=== PATIENT | male | born 1950 | race Caucasian/White ===

== ENCOUNTER → 2024-05-24 06:20 | Day surgery (SDC) | payer MEDICARE, SELFPAY | LOC: GI 06:20 | PROVIDERS: ATTENDING PHYSICIAN Internal Medicine Gastroenterology | DX: Z12.11 Encounter for screening for malignant neoplasm of colon (principal); K64.8 Other hemorrhoids; K57.30 Diverticulosis of large intestine without perforation or abscess without bleeding | CPT/HCPCS: G0121 ==

== ENCOUNTER 2025-07-05 16:46 | Emergency (ER) | payer MEDICARE, SELFPAY ==
[2025-07-05 16:52] VITALS: BP 137/76
[2025-07-05 17:32] VITALS: BMI 32.2
[2025-07-05] MEDS: MORPHINE SULFATE 4 MG IV (17:37)
[2025-07-05] MEDS: NSS 500 IV (17:39)
[2025-07-05 17:47] LABS: Hematocrit 44.8 % (39.0-52.0); Hemoglobin 14.4 g/dL (13.0-18.0); Mean Corp Hgb Conc. 32.1 g/dL (33.0-37.0); Mean Corpuscular Volume 102.3 fL (80.0-94.0); Nucleated Red Blood Cells % 0 % (-); Platelet Count 223 10^3/uL (130-400); Red Cell Dist. Width 14.3 % (11.5-14.5)
[2025-07-05 17:57] LABS: INR 1.49; PT 18.2 Sec (11.4-14.6)
[2025-07-05 17:58] LABS: APTT 26.4 Sec (23.4-35.0)
[2025-07-05 18:03] LABS: Blood Urea Nitrogen 24 mg/dl (9-20); Calcium 9.1 mg/dl (8.4-10.2); Carbon Dioxide 25 mmol/L (22-30); Chloride 104 mmol/L (98-107); Estimated Creatinine Clearance 65 ml/min; Glucose 123 mg/dl (70-99); Potassium 4.6 mmol/L (3.5-5.1); Sodium 138 mmol/L (135-145); eGFR 58.37
--- NOTE | 2025-07-05 18:43 | ED.GENMED ---
History of Present Illness
General
Chief Complaint: Skin Surface Trauma
Time Seen by Provider: 07/05/25 17:24
Nursing documentation reviewed up to this point in time: agreed with
History of Present Illness
History of Present Illness:
74-year-old male presents to the ER for evaluation after he fell on his left side into some bushes at home. Patient is on long-term anticoagulation of Xarelto for his atrial fibrillation. He did not strike his head. He denies loss of
consciousness. He reports pain and swelling localized to his left buttock only. He has been able to ambulate but admits to pain with ambulation. He denies any abdominal pain. He has not gone to the bathroom since the fall. He denies any
difficulty breathing. No other extremity complaint. No change in vision. No vomiting.
Past History
Past History
ED Past Medical History: HTN and Hypercholesterolemia
ED Past Surgical History: Orthopedic (Knee surgery, unsure which side)
Social History
Tobacco: Non-smoker
Alcohol: Occasional
Drug: None
Personal:
Living: with family
Employment: Employed
Phy Exam
Physical Exam
Physical Exam:
Patient is awake, alert, appears in no acute distress, head is NCAT, wearing glasses, PERRL, EOMI mucous membranes moist, conjunctiva pink, heart regular rate and rhythm without murmurs or ectopy, lungs are clear to auscultation without wheezes
rales or rhonchi, no JVD, abdomen is soft and nontender on palpation, extremities without edema, pelvis is stable to rock, large firm palpable mass present in the left lateral buttock in comparison to normal right buttock, no overlying ecchymosis,
2+ DP pulses present symmetric bilateral feet, intact sensation to light touch, GCS is 15
Course
Orders/Labs/Results
Orders:
Orders
07/05/25 17:29
CT Abd/pelvis W Iv Cont Urgent
Comment: enlarging hematoma L buttock, ?active extrav
Reason For Exam: trauma
CT Head W/o Iv Contrast Urgent
Comment:
Reason For Exam: trauma
0.9% Sodium Chloride 500 ml [Nss] 500 ml IV BOLUS
Morphine Sulfate 4 mg IV NOW STA
07/05/25 17:34
Type+Screen Urgent
Basic Metabolic Panel Urgent
CBC/With Diff [Complete Blood Count/With Diff] Urgent
PTT Urgent
Prothrombin Time Urgent
07/05/25 20:29
Oxycodone/Acetaminophen [Percocet 5/325] 1 tablet PO NOW STA
Abnormal Lab Results
07/05/25
17:34
RBC 4.38 L 10^6/uL
(4.70-6.10)
MCV 102.3 H fL
(80.0-94.0)
MCH 32.9 H pg
(27.0-31.0)
MCHC 32.1 L g/dL
(33.0-37.0)
Absolute Neuts (auto) 8.2 H 10^3/uL
(1.4-6.5)
Absolute Lymphs (auto) 1.1 L 10^3/uL
(1.2-3.4)
Absolute Monos (auto) 0.7 H 10^3/uL
(0.1-0.6)
Neutrophils % 80.5 H %
(42.2-75.2)
Lymphocytes % 10.3 L %
(20.5-51.1)
PT 18.2 H Sec
(11.4-14.6)
BUN 24 H mg/dl
(9-20)
Glucose 123 H mg/dl
(70-99)
07/05/25 17:34
07/05/25 17:34
Very reassuring CBC, hemoglobin 14.4, no indication for transfusion. Kidney function preserved-creatinine was 1.3 also on 08/05/2019
Vital Signs
Initial and Last Documented VS:
Initial Vital Signs
Temp Pulse Resp BP Pulse Ox
97.5 F 83 16 137/76 98
07/05/25 16:52 07/05/25 16:52 07/05/25 16:52 07/05/25 16:52 07/05/25 16:52
Last Documented Vital Signs
Temp Pulse Resp BP Pulse Ox
97.5 F 78 14 107/80 98
07/05/25 16:52 07/05/25 21:41 07/05/25 21:41 07/05/25 21:41 07/05/25 21:41
MDM/Problems Addressed
Differential Diagnosis Includes:
Differential diagnosis considered but not limited to contusion, hematoma, strain, pelvic fracture, occult intracranial hemorrhage along with other etiologies considered
Chronic conditions affecting care:
Long-term anticoagulation, age greater than 65
*Radiology
Radiology exam reviewed: radiology read reviewed
*Pulse Oximetry
SaO2: 98
Oxygen Mode of Delivery: Room air
Patient hypoxic: no
*Critical Care Note
Total Time (30-74mins, 75-104mins- exclusive of procedures): Not Applicable
Update Note
Update Note:
Patient given morphine for his discomfort. Will obtain CT of the abdomen pelvis to assess for active extract given large hematoma which is worsening since patient arrival in the ER. Given he is on long-term anticoagulation is greater than 65 years
of age, will also obtain CT of the head to rule out occult intracranial hemorrhage. Patient agrees with plan at current
Patient's is not present at bedside after all test results available. I discussed with them no evidence for acute intracranial injury. I discussed the presence of large hematoma on buttock, no evidence for active extract. I also discussed
with him very generous hemoglobin at current time. Patient has remained hemodynamically stable. He is still having significant discomfort. Will provide small prescription for Vicodin to use at home. He expressed understanding of need to
follow-up with primary care physician for reevaluation. He expressed understanding of strict return precautions. He and his had no questions prior to leaving the department.
ED Attending Note
-
Portions of this chart may have been created with voice recognition software.� Occasional wrong word or��sound alike� substitutions may have occurred due to the inherent limitations of voice recognition software.
Discharge Plan
Departure
Patient Disposition: Home (Routine Discharge)
Date of Disposition: 07/05/25
Time of Disposition: 20:29
Patient with high blood pressure during this ER visit?: No
Discharge Problem:
Hematoma, Anticoagulant long-term use
Instructions: Hematoma
Prescriptions:
New
hydrocodone-acetaminophen 5-325 mg tablet
1 tab PO Q6H PRN (Reason: Pain) Qty: 8 0RF
No Action
atorvastatin 40 MG tablet
40 mg PO QPM
metoprolol tartrate 100 MG tablet
100 mg PO QPM
mupirocin 1 GRAM ointment
1 applic intranasal
Patient Comments:
started 08/23/19
sennosides [senna] 1 TABLET tablet
2 tab PO BID 0RF
docusate sodium 100 MG capsule
100 mg PO BID 0RF
tramadol 50 MG tablet
50 mg PO Q6HPRN PRN (Reason: mild-moderate pain) Qty: 35 0RF
Rx Instructions:
Dx total joint
ongoing therapy
hydrocodone-acetaminophen [[place]] 1 EACH tablet
1 ea PO Q4H PRN (Reason: severe pain) Qty: 20 0RF
gabapentin 300 MG capsule
300 mg PO TID Qty: 30 0RF
warfarin [Jantoven] 2.5 MG tablet
5 mg PO HS Qty: 30 1RF
Rx Instructions:
take 2 tabs (5 mg) tonight (08/27/19), 1 tab Monday (08/28/19) night, then as advised after INR by Dr Mariano
lisinopril 40 MG tablet
40 mg PO QPM Qty: 0 0RF
Rx Instructions:
Hold if systolic blood pressure <130
rivaroxaban [Xarelto] 20 MG tablet
20 mg PO QPM Qty: 0 0RF
Rx Instructions:
Resume after 09/09/19 when INR <2
Referrals:
Barbie Alcala MD [Family Provider, Internal Medicine]
Activity Restrictions/Additional Instructions:
Use Tylenol as needed for pain. You may add hydrocodone as prescribed for additional severe pain relief. For the first 24 hours, please apply ice for 20 minutes at a time to help with swelling and discomfort. After 24 hours, please switch to
moist heat for 20 minutes intermittently throughout the day. You may alternate between ice and heat if this is more comfortable for you. Please follow-up with your primary care physician this week for reevaluation and further care. Return to the
ER for any concerns
Interventions
Interventions:
*Risk Screen - Suicide Last Done: 07/05/25 16:52
*Neglect/Abuse Screening Last Done: 07/05/25 16:52
*ED- Fall Risk Assessment Last Done: 07/05/25 19:04
*Nursing Disposition Last Done: 07/05/25 21:50
ED-Skin Assessment Last Done: 07/05/25 21:40
Discharge Date and Time
Discharge Date/Time: 07/05/25 21:50
Print Language: [id number]
[2025-07-05 21:41] VITALS: BP 107/80
[2025-07-05] MEDS: PERCOCET 5/325 1 TABLET PO (21:43)
== END 2025-07-05 21:50 | disposition home or self-care (01) ==
LOC: EMR 16:46
PROVIDERS: Emergency Medicine; EMERGENCY PHYSICIAN Emergency Medicine; FAMILY PHYSICIAN Student in an Organized Health Care Education/Training Program
DX: S30.0XXA Contusion of lower back and pelvis, initial encounter (principal); I48.91 Unspecified atrial fibrillation; I10 Essential (primary) hypertension; E78.00 Pure hypercholesterolemia, unspecified; Z79.01 Long term (current) use of anticoagulants; W01.0XXA Fall on same level from slipping, tripping and stumbling without subsequent striking against object, initial encounter; W60.XXXA Contact with nonvenomous plant thorns and spines and sharp leaves, initial encounter
CPT/HCPCS: 99284; 96374; 70450; 74177; 80048; 85025; 85610; 85730; 86850; 86900; 86901; Q9967

== ENCOUNTER 2025-07-11 16:20 | Emergency (ER) | payer MEDICARE, SELFPAY ==
[2025-07-11 16:33] VITALS: BP 171/92
[2025-07-11 16:57] LABS: Hematocrit 33.0 % (39.0-52.0); Hemoglobin 10.8 g/dL (13.0-18.0); Mean Corp Hgb Conc. 32.7 g/dL (33.0-37.0); Mean Corpuscular Volume 103.1 fL (80.0-94.0); Nucleated Red Blood Cells % 0.3 % (-); Platelet Count 275 10^3/uL (130-400); Red Cell Dist. Width 15.5 % (11.5-14.5)
[2025-07-11 17:18] LABS: ALT (SGPT) 33 U/L (0-50); AST (SGOT) 33 U/L (17-59); Albumin 4.2 g/dl (3.5-5.0); Alkaline Phosphatase 61 U/L (38-126); Blood Urea Nitrogen 28 mg/dl (9-20); Calcium 9.1 mg/dl (8.4-10.2); Carbon Dioxide 24 mmol/L (22-30); Chloride 107 mmol/L (98-107); Glucose 105 mg/dl (70-99); Potassium 4.8 mmol/L (3.5-5.1); Sodium 136 mmol/L (135-145); Total Protein 7.3 g/dl (6.3-8.2); eGFR > 60.00
--- NOTE | 2025-07-11 21:37 | ED.GENMED ---
History of Present Illness
General
Chief Complaint: Abnormal Lab Value
Source: patient
Exam Limitations: none
Time Seen by Provider: 07/11/25 21:04
History of Present Illness
History of Present Illness:
74-year-old male presents for reevaluation. He was here last weekend after a fall onto his buttock resulting in a large hematoma. At that point he was anticoagulated with Xarelto for history of paroxysmal atrial fibrillation. He was seen in
follow-up by his family doctor this week. His Xarelto was stopped 3 days ago. Outpatient labs throughout the week demonstrated steadily decreasing hemoglobin. His initial hemoglobin at the time of the visit was 14.4 and yesterday dropped to 10.1.
He was referred here for further evaluation on my exam he states his pain is improved and the firmness of his hematoma has resolved. He denies lightheadedness or shortness of breath. No other complaints at this time
Past History
Past History
ED Past Medical History: HTN and Hypercholesterolemia
ED Past Surgical History: Orthopedic (Knee surgery, unsure which side)
Social History
Tobacco: Non-smoker
Alcohol: Occasional
Drug: None
Personal:
Living: with family
Employment: Employed
Phy Exam
Physical Exam
Physical Exam:
General: Well-appearing male no acute respiratory distress
HEENT: Normal cephalic atraumatic
Skin: Diffuse ecchymosis noted of the left buttock into the left flank down the left thigh.
Musculoskeletal exam: Left thigh is slightly swollen but not firm not tender to the touch. The buttock is minimally tender. He has good range of motion to the left hip and knee. Compartments are soft DP pulse to the left foot
Course
Orders/Labs/Results
Orders:
Orders
07/11/25 16:41
Complete Blood Count/With Diff Urgent
Comprehensive Metabolic Panel Urgent
Abnormal Lab Results
07/11/25
16:41
RBC 3.20 L 10^6/uL
(4.70-6.10)
Hgb 10.8 L D g/dL
(13.0-18.0)
Hct 33.0 L %
(39.0-52.0)
MCV 103.1 H fL
(80.0-94.0)
MCH 33.8 H pg
(27.0-31.0)
MCHC 32.7 L g/dL
(33.0-37.0)
RDW 15.5 H %
(11.5-14.5)
Absolute Monos (auto) 0.8 H 10^3/uL
(0.1-0.6)
Monocytes % 12.6 H %
(1.7-9.3)
BUN 28 H mg/dl
(9-20)
Glucose 105 H mg/dl
(70-99)
Total Bilirubin 2.9 H mg/dl
(0.2-1.3)
07/11/25 16:41
07/11/25 16:41
Vital Signs
Initial and Last Documented VS:
Initial Vital Signs
Temp Pulse Resp BP Pulse Ox
98.1 F 87 19 171/92 96
07/11/25 16:33 07/11/25 16:33 07/11/25 16:33 07/11/25 16:33 07/11/25 16:33
Last Documented Vital Signs
Temp Pulse Resp BP Pulse Ox
98.1 F 72 19 130/85 98
07/11/25 21:58 07/11/25 21:58 07/11/25 16:33 07/11/25 21:56 07/11/25 21:58
MDM/Problems Addressed
Differential Diagnosis Includes:
Patient with decreasing hemoglobin since last visit after fall. He had known hematoma to the left buttock that was not actively bleeding at the time of last visit. Sent in by family doctor today. Hemoglobin today's visit is 10.8. I recommended
CT of the pelvis to evaluate for any active bleeding at this time given the drop in hemoglobin however he declined in the setting of improved symptoms including less pain and decreased firmness to the area. Discussed this with his family doctor as
well. He will return to the emergency room tomorrow for repeat hemoglobin and understands that if his hemoglobin is down from today he will require another CAT scan. At this point we will continue to hold the Xarelto. If his hemoglobin increases
tomorrow may consider restarting the Xarelto tomorrow evening
*Pulse Oximetry
SaO2: 96
Patient hypoxic: no
*Critical Care Note
Total Time (30-74mins, 75-104mins- exclusive of procedures): Not Applicable
ED Attending Note
-
Portions of this chart may have been created with voice recognition software.� Occasional wrong word or��sound alike� substitutions may have occurred due to the inherent limitations of voice recognition software.
Discharge Plan
Departure
Patient Disposition: Home (Routine Discharge)
Date of Disposition: 07/11/25
Time of Disposition: 21:45
Patient with high blood pressure during this ER visit?: No
Discharge Problem:
Hematoma
Prescriptions:
No Action
atorvastatin 40 MG tablet
40 mg PO QPM
metoprolol tartrate 100 MG tablet
100 mg PO QPM
mupirocin 1 GRAM ointment
1 applic intranasal
Patient Comments:
started 08/23/19
sennosides [senna] 1 TABLET tablet
2 tab PO BID 0RF
docusate sodium 100 MG capsule
100 mg PO BID 0RF
tramadol 50 MG tablet
50 mg PO Q6HPRN PRN (Reason: mild-moderate pain) Qty: 35 0RF
Rx Instructions:
Dx total joint
ongoing therapy
hydrocodone-acetaminophen [[place]] 1 EACH tablet
1 ea PO Q4H PRN (Reason: severe pain) Qty: 20 0RF
gabapentin 300 MG capsule
300 mg PO TID Qty: 30 0RF
warfarin [Jantoven] 2.5 MG tablet
5 mg PO HS Qty: 30 1RF
Rx Instructions:
take 2 tabs (5 mg) (08/27/19), 1 tab Monday (08/28/19) night, then as advised after INR by Dr Mariano
lisinopril 40 MG tablet
40 mg PO QPM Qty: 0 0RF
Rx Instructions:
Hold if systolic blood pressure <130
rivaroxaban [Xarelto] 20 MG tablet
20 mg PO QPM Qty: 0 0RF
Rx Instructions:
Resume after 09/09/19 when INR <2
hydrocodone-acetaminophen 5-325 mg tablet
1 tab PO Q6H PRN (Reason: Pain) Qty: 8 0RF
Activity Restrictions/Additional Instructions:
Please return to the emergency room tomorrow and check-in for repeat hemoglobin to be checked. If your hemoglobin is lower tomorrow as discussed today, you may require another CAT scan. Continue to hold Xarelto until tomorrow's blood test result
Interventions
Interventions:
*Risk Screen - Suicide Last Done: 07/11/25 16:35
*General Assessment Last Done: 07/11/25 16:35
*Neglect/Abuse Screening Last Done: 07/11/25 16:35
*ED- Fall Risk Assessment Last Done: 07/11/25 21:59
*ED COVID-19 Vaccine History Last Done: 07/11/25 16:35
*ED Influenza Vaccine History Last Done: 07/11/25 16:35
*Nursing Disposition Last Done: 07/11/25 22:00
Discharge Date and Time
Discharge Date/Time: 07/11/25 22:00
Print Language: [id number]
[2025-07-11 21:56] VITALS: BP 130/85
== END 2025-07-11 22:00 | disposition home or self-care (01) ==
LOC: EMR 16:20
PROVIDERS: Emergency Medicine; EMERGENCY PHYSICIAN Emergency Medicine; FAMILY PHYSICIAN Student in an Organized Health Care Education/Training Program
DX: S30.0XXA Contusion of lower back and pelvis, initial encounter (principal); W19.XXXA Unspecified fall, initial encounter; I48.0 Paroxysmal atrial fibrillation; I10 Essential (primary) hypertension; E78.00 Pure hypercholesterolemia, unspecified; Z79.01 Long term (current) use of anticoagulants
CPT/HCPCS: 99283; 80053; 85025

== ENCOUNTER 2025-07-12 13:24 | Emergency (ER) | payer MEDICARE, SELFPAY ==
[2025-07-12 13:35] VITALS: BP 112/73
[2025-07-12 13:53] LABS: Hematocrit 34.3 % (39.0-52.0); Hemoglobin 10.9 g/dL (13.0-18.0); Mean Corp Hgb Conc. 31.8 g/dL (33.0-37.0); Mean Corpuscular Volume 107.9 fL (80.0-94.0); Nucleated Red Blood Cells % 0.3 % (-); Platelet Count 282 10^3/uL (130-400); Red Cell Dist. Width 15.3 % (11.5-14.5)
[2025-07-12 14:14] LABS: ALT (SGPT) 35 U/L (0-50); AST (SGOT) 34 U/L (17-59); Albumin 4.1 g/dl (3.5-5.0); Alkaline Phosphatase 56 U/L (38-126); Blood Urea Nitrogen 23 mg/dl (9-20); Calcium 9.1 mg/dl (8.4-10.2); Carbon Dioxide 29 mmol/L (22-30); Chloride 105 mmol/L (98-107); Glucose 94 mg/dl (70-99); Potassium 5.3 mmol/L (3.5-5.1); Sodium 137 mmol/L (135-145); Total Protein 7.0 g/dl (6.3-8.2); eGFR > 60.00
--- NOTE | 2025-07-12 14:51 | ED.GENMED ---
History of Present Illness
General
Chief Complaint: Abnormal Lab Value
Source: patient and previous hospital records
Exam Limitations: none
Time Seen by Provider: 07/12/25 14:34
Nursing documentation reviewed up to this point in time: agreed with
History of Present Illness
History of Present Illness:
74-year-old male who fell on 07/05, on Eliquis and developed a large hematoma of his left buttock, had gradually decrease in hemoglobin levels throughout the week and his Xarelto was stopped on 07/08. He was here yesterday for repeat hemoglobin was
10.8 and was told to come back today for yet another repeat hemoglobin. Pt states pain is improved, swelling improved. Area is 'not as hard.'
Past History
Past History
ED Past Medical History: Arrthythmia (Atrial fibrillation), GERD, HTN and Hypercholesterolemia
ED Past Surgical History: Orthopedic (Knee surgery, unsure which side)
Social History
Tobacco: Non-smoker
Alcohol: Occasional
Drug: None
Personal:
Living: with family
Employment: Employed
Review of Systems
Review of Systems
Allergies reviewed?: Yes
All Other Systems: ROS reviewed and negative except as documented in HPI and ROS
Phy Exam
Physical Exam
Physical Exam:
GENERAL: No acute distress. A&Ox3.
CONSTITUTIONAL: Afebrile.
RESPIRATORY: Regular respirations, nonlabored, lungs clear.
CARDIOVASCULAR: Regular rate and rhythm, no murmurs, no rubs.
MUSCULOSKELETAL: Moves with ease. Well perfused. Pt ambulating well.
SKIN: Warm, dry, pink. Purple ecchymotic area is improving, bruising noted down thigh to knee. Distal n/v intact.
PSYCH: Normal mood and affect. Well kept, interactive and appropriate
NEUROLOGIC: Awake, alert and oriented. No focal neurological deficits
Course
Orders/Labs/Results
Orders:
Orders
07/12/25 13:45
CBC/With Diff [Complete Blood Count/With Diff] Urgent
CMP [Comprehensive Metabolic Panel] Urgent
Abnormal Lab Results
07/12/25
13:45
RBC 3.18 L 10^6/uL
(4.70-6.10)
Hgb 10.9 L g/dL
(13.0-18.0)
Hct 34.3 L %
(39.0-52.0)
MCV 107.9 H fL
(80.0-94.0)
MCH 34.3 H pg
(27.0-31.0)
MCHC 31.8 L g/dL
(33.0-37.0)
RDW 15.3 H %
(11.5-14.5)
Absolute Monos (auto) 1.0 H 10^3/uL
(0.1-0.6)
Lymphocytes % 18.2 L %
(20.5-51.1)
Monocytes % 15.4 H %
(1.7-9.3)
Potassium 5.3 H mmol/L
(3.5-5.1)
BUN 23 H mg/dl
(9-20)
Total Bilirubin 2.8 H mg/dl
(0.2-1.3)
07/12/25 13:45
07/12/25 13:45
Vital Signs
Initial and Last Documented VS:
Initial Vital Signs
Temp Pulse Resp BP Pulse Ox
98.2 F 78 18 112/73 97
07/12/25 13:35 07/12/25 13:35 07/12/25 13:35 07/12/25 13:35 07/12/25 13:35
Last Documented Vital Signs
Temp Pulse Resp BP Pulse Ox
98.2 F 74 16 121/74 98
07/12/25 13:35 07/12/25 15:12 07/12/25 15:12 07/12/25 15:12 07/12/25 15:12
MDM/Problems Addressed
MDM/Problems Addressed:
74-year-old male who fell on 07/05, on Eliquis and developed a large hematoma of his left buttock, had gradually decrease in hemoglobin levels throughout the week and his Xarelto was stopped on 07/08. He was here yesterday for repeat hemoglobin was
10.8 and was told to come back today for yet another repeat hemoglobin. Pt states pain is improved, swelling improved. Area is 'not as hard.'
Hemoglobin today is 10.9. Patient is stable for discharge.
Moving around and ambulating well.
*Pulse Oximetry
SaO2: 97
Oxygen Mode of Delivery: Room air
Patient hypoxic: not evaluated
*Critical Care Note
Total Time (30-74mins, 75-104mins- exclusive of procedures): Not Applicable
ED Attending Note
-
Portions of this chart may have been created with voice recognition software.� Occasional wrong word or��sound alike� substitutions may have occurred due to the inherent limitations of voice recognition software.
Discharge Plan
Departure
Patient Disposition: Home (Routine Discharge)
Date of Disposition: 07/12/25
Time of Disposition: 14:58
Patient with high blood pressure during this ER visit?: No
Condition: Good
Discharge Problem:
Hematoma
Instructions: Contusion, Hematoma
Prescriptions:
No Action
atorvastatin 40 MG tablet
40 mg PO QPM
metoprolol tartrate 100 MG tablet
100 mg PO QPM
mupirocin 1 GRAM ointment
1 applic intranasal
Patient Comments:
started 08/23/19
sennosides [senna] 1 TABLET tablet
2 tab PO BID 0RF
docusate sodium 100 MG capsule
100 mg PO BID 0RF
tramadol 50 MG tablet
50 mg PO Q6HPRN PRN (Reason: mild-moderate pain) Qty: 35 0RF
Rx Instructions:
Dx total joint
ongoing therapy
hydrocodone-acetaminophen [[place]] 1 EACH tablet
1 ea PO Q4H PRN (Reason: severe pain) Qty: 20 0RF
gabapentin 300 MG capsule
300 mg PO TID Qty: 30 0RF
warfarin [Jantoven] 2.5 MG tablet
5 mg PO HS Qty: 30 1RF
Rx Instructions:
take 2 tabs (5 mg) (08/27/19), 1 tab Monday (08/28/19) night, then as advised after INR by Dr Mariano
lisinopril 40 MG tablet
40 mg PO QPM Qty: 0 0RF
Rx Instructions:
Hold if systolic blood pressure <130
rivaroxaban [Xarelto] 20 MG tablet
20 mg PO QPM Qty: 0 0RF
Rx Instructions:
Resume after 09/09/19 when INR <2
hydrocodone-acetaminophen 5-325 mg tablet
1 tab PO Q6H PRN (Reason: Pain) Qty: 8 0RF
Referrals:
Barbie Alcala MD [Family Provider, Internal Medicine]
Activity Restrictions/Additional Instructions:
As we discussed, the area is improving, your hemoglobin today was 10.9 which is better than it was yesterday. Follow-up with your family doctor regarding your Eliquis.
Interventions
Interventions:
*Risk Screen - Suicide Last Done: 07/12/25 13:35
*General Assessment Last Done: 07/12/25 13:35
*Neglect/Abuse Screening Last Done: 07/12/25 13:35
*ED- Fall Risk Assessment Last Done: 07/12/25 14:19
*ED COVID-19 Vaccine History Last Done: 07/12/25 15:12
*ED Influenza Vaccine History Last Done: 07/12/25 15:12
*Nursing Disposition Last Done: 07/12/25 15:12
Discharge Date and Time
Discharge Date/Time: 07/12/25 15:12
Print Language: [email or web address]
[2025-07-12 15:12] VITALS: BP 121/74
== END 2025-07-12 15:12 | disposition home or self-care (01) ==
LOC: EMR 13:24
PROVIDERS: Emergency Medicine; EMERGENCY PHYSICIAN Emergency Medicine; FAMILY PHYSICIAN Student in an Organized Health Care Education/Training Program
DX: S30.0XXA Contusion of lower back and pelvis, initial encounter (principal); X58.XXXA Exposure to other specified factors, initial encounter; E78.00 Pure hypercholesterolemia, unspecified; I10 Essential (primary) hypertension; I48.91 Unspecified atrial fibrillation; Z79.01 Long term (current) use of anticoagulants
CPT/HCPCS: 99283; 80053; 85025